=== PATIENT | male | born 1945 | race Caucasian/White ===

== ENCOUNTER 2016-07-18 13:12 | Emergency (ER) | payer MEDICARE ==
[~2016-07-18] VITALS: Ht 180.3 cm; Wt 86.4 kg
[~2016-07-18 13:12] MED LIST: CEPH500T PO; DOCU50CA7 PO; LISI-567 PO; OXYC-465 PO; OXYC5TAB72 PO; POLY17PO6 PO; SENN8.6C6 PO
[2016-07-18 13:14] VITALS: BP 162/105; PULSE 108; RESP 18; O2SAT 97
--- NOTE | 2016-07-18 13:55 | ED.REPORT ---
HPI-General Illness Date of Service Jul 18, 2016 ED Provider: Vivi Roche MD 70 y/o Pt with Hx of Pneumonia, HTN and current smoker reports to the ED with cough/SOB onset 4 weeks ago. The symptoms have been progressively worsening especially the past 3-4 days. The dyspnea is exacerbated with exertion. Pt reports associated fatigue, diarrhea, weakness, productive cough with sputum. Pt denies fever, vomiting, CP and lightheadedness. Pt claims symptoms experienced are similar to past episode of Pneumonia. Nursing Notes Stated Complaint: SOB/SICK Chief Complaint: Respiratory Distress Nursing Notes Reviewed: Yes Allergies: Coded Allergies: No Known Allergies (Verified Allergy, Unknown, 07/18/16) Scheduled Cephalexin (Cephalexin) 500 Mg Tablet 500 MG PO q12h Lisinopril (Lisinopril) 20 Mg Tablet 20 MG PO DAILY Polyethylene Glycol 3350 (Miralax) 17 Gm Powd.pack 17 GM PO DAILY Sennosides (Senna) 8.6 Mg Capsule 17.2 MG PO DAILY Scheduled PRN Docusate Sodium (Docusate Sodium) 50 Mg Capsule 100 MG PO BID PRN PRN For Constipation oxyCODONE (oxyCODONE) 5 Mg Tablet 5 MG PO q6h PRN PRN For Pain oxyCODONE-Acetaminophen 7.5-325 mg (oxyCODONE-Acetaminophen 7.5-325 mg) 1 Each Tablet 1 TAB PO q6h PRN PRN For Pain General Time Seen by MD: 13:53 Chief Complaint Breathing problem Hx Obtained From: Patient, Spouse Arrived By: Walk-in Sudden in Onset?: No Onset Occurred: More than a week ago... (4 weeks) Symptom Duration: Since onset Severity: Current: No pain currently Associated with: Reports: Cough, Shortness of breath, Weakness, Denies: Fever, Vomiting Similar Sx Previous: Yes (Pt claims symptoms experienced are similar to past episode of Pneumonia.) Past Medical History Past Medical History 1. Hypertension. 2. Hyperlipidemia. 3. Psoriasis. 4. Pneumonia 5. Back pain 6. Sleep apnea Past Surgical History Negative Smoking History Current Every Day Smoker Social History Alcohol Use: 1-3 per day Drug Use: Denies drug use Other Social History: Ambulatory Status Independent Review of Systems Full Review of Systems Constitutional: Reports: Fatigue, Weakness - generalized, Denies: Fever Respiratory: Reports: Dyspnea on exertion, Prod cough, clear, Shortness of breath Cardiovascular: Denies: Chest pain GI: Reports: Diarrhea, Denies: Vomiting Neurologic: Denies: Lightheaded Complete sys rev & neg: except as marked. Physical Exam Vital Signs Vital Signs Date Time Temp Pulse Resp B/P Pulse Ox O2 Delivery O2 Flow Rate FiO2 07/18/16 15:20 80 20 185/93 96 Room Air 07/18/16 13:14 36.6 108 18 162/105 97 Room Air Initial VS: Reviewed General/Constitutional: Well-developed, Well-nourished Head / Eyes: Atraumatic, Normocephalic, PERRL ENT: Conjunctiva normal, No scleral icterus Neck: Full range of motion Skin: Warm, Dry, No cyanosis Neurologic: Alert, Oriented, Nonfocal Psychiatric: Mood/affect normal, Behavior normal, Normal thought content General/Constitutional: Awake, Alert, Cooperative, Not toxic appearing Respiratory / Chest: Atraumatic, No respiratory distress, No wheezing Rhonchi right lower lung field Cardiovascular: Heart rate NL, Regular rhythm, Heart sounds NL, Cap refill not delayed, Peripheral circulation NL Abdomen: Atraumatic, Non-tender, No guarding, No rebound, BS normoactive Organomegaly / Mass / Hernia: Positive: Hernia umbilical Lower Extremity / Pelvis / MS: No edema (chronic venous stasis changes) Interpretation & Diagnostics Lab Results Interpretation Result Diagram: 07/18/16 1429 07/18/16 1429 Test 07/18/16 14:29 White Blood Count 8.8th/mm3 (3.8-10.1) Red Blood Count 4.61mil/mm3 (4.40-5.80) Hemoglobin 15.9g/dL (13.8-17.2) Hematocrit 46.6% (41.0-50.0) Mean Corpuscular Volume 101.1fL (81-100) Mean Corpuscular Hemoglobin 34.5pg (27.0-35.0) Mean Corpuscular Hemoglobin Concent 34.1% (32.0-37.0) Red Cell Distribution Width 12.7% (12.3-15.4) Platelet Count 219bil/L (150-400) Neutrophils (%) (Auto) 62.9% (40-74) Lymphocytes (%) (Auto) 30.4% (14-46) Monocytes (%) (Auto) 5.9% (4-12) Eosinophils (%) (Auto) 0.2% (0-5) Basophils (%) (Auto) 0.1% (0-3) Sodium Level 135mEq/L (134-144) Potassium Level 4.5mEq/L (3.5-5.2) Chloride Level 94mEq/L (97-108) Carbon Dioxide Level 23mmol/L (18-29) Blood Urea Nitrogen 29mg/dL (8-27) Creatinine 1.11mg/dL (0.76-1.27) Estimat Glomerular Filtration Rate 70mL/min (>59) Glucose Level 82mg/dL (60-99) Lactic Acid Level 1.4mmol/L (0.4-2.0) Calcium Level 9.6mg/dL (8.5-10.1) Total Bilirubin 1.0mg/dL (0.0-1.2) Aspartate Amino Transf (AST/SGOT) 41U/L (0-50) Alanine Aminotransferase (ALT/SGPT) 28U/L (0-44) Alkaline Phosphatase 60U/L (25-160) Troponin T < 0.010ug/L (0.0-0.011) Pro-B-Type Natriuretic Peptide 428.9pg/mL (0-376) Total Protein 8.8g/dL (6.4-8.4) Albumin 4.1g/dL (3.4-5.0) General Lab Results Interp 1: Labs reviewed ECG Interpretation Time: 14:11 Interpreted by: ED physician Normal ECG Interpretation: Normal rate (79), Normal sinus rhythm, No acute ischemic changes, Normal QRS, Normal axis, Normal intervals, Adequate tracing X-Ray Chest Interpretation Chest Xray Interpretation: IMPRESSION: Trace right subpulmonic pleural effusion is of uncertain etiology. Dictated by: Suleiman Hunter M.D. on 07/18/2016 at 14:10 Approved by: Suleiman Hunter M.D. on 07/18/2016 at 14:10 View: AP & lat Interpretation / Wet Read by: Interpret - Radiologist Chest Xray Interpretation: Developing RLL pnemonia with trace effusion on that side. Interpretation / Wet Read by: Wet read ED physician Re-Eval/Medical Decision Med Decision/Clinical Course Clinical right lower lobe pneumonia without signs or symptoms of sepsis. Community-acquired. Outpatient antibiotics. Use no need for steroids or nebulizers at this point. Did review signs and symptoms of worsening pneumonia and evidence for sepsis and encouraged him to return should he get worse. Counseled Regarding: Diagnosis Discharge & Departure Primary Impression: Pneumonia Disposition: Home Additional Instructions: You have pneumonia on the right side. I am glad the convinced to come in and see us today. Labs, chest x-ray, EKG and remainder workup are actually very reassuring. I fully expect that he will recover completely with going home and completing a course of antibiotics. I have given you a dose of ceftriaxone in the ER, you will need to compete a course of azithromycin (5 days) and have been given a prescription for this If you are worsening, please return to the emergency room Referrals: Hannah Moore DO (PCP) Scribe Attestation Portions of this note were transcribed by Marylou Coburn and Lamin Rosario. I, (Dr. Roche) personally performed the history, physical exam and medical decision- making; I reviewed and confirmed the accuracy of the information in the transcribed note. Signed by: Marylou Coburn. 07/18/2016, 1354 copies to: Hannah Moore Shawna L MD Jul 18, 2016 13:55 Lamin Hensley Jul 18, 2016 14:21 Marylou Coburn Jul 18, 2016 14:55
[2016-07-18] MEDS ORDERED: 0.9% Sodium Chloride 1,000 ML IV ONE (14:03)
[2016-07-18] MEDS ORDERED: Azithromycin Inj 500 MG in Dextrose 5% w/Vial Mate 250 ML IV ONE (14:05)
--- NOTE | 2016-07-18 14:12 | DRSVH ---
PROCEDURE: X-RAY CHEST, TWO VIEWS ([id number]) INDICATIONS: 70 year-old male with shortness of breath. TECHNIQUE: 2 views of the chest were acquired. COMPARISON: [facility], CR, CHEST 1VW (PORTABLE), 12/11/2014, 1:09. Located within [facility], CR, CHEST 1VW (PORTABLE), 03/16/2011, 9:25. [facility], , CHEST 1VW (PORTABLE), 02/14, 7:40. FINDINGS: Surgical changes and devices: None. Lungs and pleura: There is trace right subpulmonic pleural effusion. No pneumothorax. Lungs are clear . Mediastinum: Mediastinal contours are normal. Heart size is normal. There is aortic atherosclerosi s. Bones and chest wall: No suspicious bony abnormalities. There is lower thoracic spine disc degenera tion. Soft tissues appear unremarkable. IMPRESSION: Trace right subpulmonic pleural effusion is of uncertain etiology. Dictated by: Suleiman Hunter M.D. on 07/18/2016 at 14:10 Approved by: Suleiman Hunter M.D. on 07/18/2016 at 14:10
[2016-07-18] MEDS: cefTRIAXone Inj 2,000 MG in IV Premix 1 EACH IV ONE ×2 (14:13→15:13)
[2016-07-18 14:48] LABS: BASOPHILS % (AUTO) 0.1 % (0-3); EOSINOPHILS % (AUTO) 0.2 % (0-5); MONOCYTES % (AUTO) 5.9 % (4-12); Mean Corpuscular Hemoglobin 34.5 pg (27.0-35.0); Mean Corpuscular Volume 101.1 fL (81-100); NEUTROPHILS % (AUTO) 62.9 % (40-74); Platelet Count 219 bil/L (150-400)
[2016-07-18 15:12] LABS: TROPONIN T < 0.010 ug/L (0.0-0.011)
[2016-07-18 15:20] VITALS: BP 185/93; PULSE 80; RESP 20; O2SAT 96
[2016-07-18] MEDS ORDERED: AZIT250T4 PO (15:46)
== END 2016-07-18 16:08 | disposition home or self-care (01) ==
LOC: SED 13:12
DX: J18.9 Pneumonia, unspecified organism (principal); R06.02 Shortness of breath; I10 Essential (primary) hypertension; E78.5 Hyperlipidemia, unspecified; F17.200 Nicotine dependence, unspecified, uncomplicated; Z87.01 Personal history of pneumonia (recurrent)
CPT/HCPCS: 36415; 71020; 80053; 82308; 83605; 83880; 84484; 85025; 87040; 93005; 96365; 99285; J0696; J7030

== ENCOUNTER 2016-08-18 04:30 | Inpatient (IN) | payer MEDICARE ==
[~2016-08-18] VITALS: Ht 180.3 cm; Wt 84.2 kg
[2016-08-18] VITALS (11 sets, daily range): BP systolic 107–149; BP diastolic 60–78; PULSE 59–98; RESP 16–20; O2SAT 95–99
[~2016-08-18 04:30] MED LIST changes: +AZIT250T4 PO
[2016-08-18] MEDS ORDERED: Epinephrine Racemic 2.25% 0.5 mL Inhalation Solution NEB ONE ×2 (04:35→04:41)
[2016-08-18] MEDS ORDERED: Dexamethasone 10 mg/mL Inj ONE (04:37)
--- NOTE | 2016-08-18 04:49 | ED.REPORT ---
HPI-General Illness Date of Service Aug 18, 2016 ED Provider: Jose Armando Hebert MD Patient is a 70 year old male with a history of hypertension on lisinopril with recent dose increase who presents to the ED via EMS in severe respiratory distress after he awoke with shortness of breath at 2am this morning. The patient is not able to swallow his own secretions and spitting up in the ED. The patient feels like he is choking, due to his throat being swollen. The patient does not have any known allergies and has not previously had an anaphylactic reaction. He is only able to nod or mumble words to communicate. He was given Nitroglycerin and DuoNeb by EMS, on CPAP. He does not have a history of congestive heart failure. Patient denies chest pain but admits that his abdomen is more distended than usual. The patient was recently treated for pneumonia. He drinks "two drinks" of alcohol daily (his approximates >4 beers per day) and he smokes cigarettes daily. Patient has previously gone through alcohol withdrawal when admitted to the hospital. Nursing Notes Stated Complaint: SHORTNESS OF BREATH Nursing Notes Reviewed: Yes Allergies: Coded Allergies: ANGELINA Inhibitors (Verified Allergy, Severe, 08/18/16) angioedema requiring intubation lisinopril (Verified Allergy, Severe, 08/18/16) angioedema requiring intubation No Known Allergies (Verified Allergy, Unknown, 07/18/16) Scheduled Azithromycin (Zithromax (Z-Jared)) 250 Mg Tablet 250 MG PO DAILY 2 pills today and one daily for 4 more days Cephalexin (Cephalexin) 500 Mg Tablet 500 MG PO q12h Lisinopril (Lisinopril) 20 Mg Tablet 20 MG PO DAILY Polyethylene Glycol 3350 (Miralax) 17 Gm Powd.pack 17 GM PO DAILY Sennosides (Senna) 8.6 Mg Capsule 17.2 MG PO DAILY Scheduled PRN Docusate Sodium (Docusate Sodium) 50 Mg Capsule 100 MG PO BID PRN PRN For Constipation oxyCODONE (oxyCODONE) 5 Mg Tablet 5 MG PO q6h PRN PRN For Pain oxyCODONE-Acetaminophen 7.5-325 mg (oxyCODONE-Acetaminophen 7.5-325 mg) 1 Each Tablet 1 TAB PO q6h PRN PRN For Pain General Time Seen by MD: 04:36 Chief Complaint Breathing problem (shortness of breath) Hx Obtained From: Patient, EMS Arrived By: Ambulance Sudden in Onset?: Yes Onset Occurred: 1 - 4 hours ago Symptom Duration: Since onset Severity: Current: No pain currently Severity: Maximum: No pain Recent Healthcare: No recent doctor visit, No recent hospitalization Similar Sx Previous: No Past Medical History Past Medical History 1. Hypertension. 2. Hyperlipidemia. 3. Psoriasis. 4. Pneumonia 5. Back pain 6. Sleep apnea 7. Open fracture dislocation right ankle, with subsequent ORIF 8. drinks alcohol daily, history of alcohol withdrawal Past Surgical History Right ankle ORIF Smoking History Current Every Day Smoker Social History Alcohol Use: 3-5 per day Drug Use: Denies drug use Other Social History: Good social support, , Local resident Ambulatory Status Independent Review of Systems Unable to Obtain ROS Patient condition (limited by respiratory distress) Full Review of Systems Ears / Nose / Throat: Reports: Throat swelling Respiratory: Reports: Non-productive cough, Shortness of breath Cardiovascular: Denies: Chest pain GI: Reports: Dysphagia Complete sys rev & neg: except as marked. Physical Exam Vital Signs Vital Signs Date Time Temp Pulse Resp B/P Pulse Ox O2 Delivery O2 Flow Rate FiO2 08/18/16 05:15 98 20 98 Room Air Initial VS: Reviewed Extremities: Vascular intact, Neuro intact, No swelling Neurologic: Alert, Oriented, Nonfocal Psychiatric: Mood/affect normal, Behavior normal General/Constitutional: Awake, Alert Distress / Hydration: Positive: Distress severe (overt distress) hypertension Head / Eyes: Atraumatic, Normocephalic, PERRL Mouth: Positive: Angioedema present... (Severe, pale bland edema, with swollen throat ) unable to swallow his own secretions Neck: Supple, No JVD Resp Distress / Stridor: Positive: Resp distress severe, Stridor severe ( inspiratory stridor) Wheezing / Retractions: Positive: Wheezing expiratory gurgling his own secretions coughing purple face, with spasmodic coughing Cardiovascular: Regular rhythm, No murmurs Heart Rate / Rhythm: Positive: Tachycardia Abdomen: Soft, Non-tender Interpretation & Diagnostics Lab Results Interpretation Result Diagram: 08/18/160 08/18/16 0440 Test 08/18/16 04:40 White Blood Count 8.1th/mm3 (3.8-10.1) Red Blood Count 4.58mil/mm3 (4.40-5.80) Hemoglobin 16.1g/dL (13.8-17.2) Hematocrit 46.4% (41.0-50.0) Mean Corpuscular Volume 101.3fL (81-100) Mean Corpuscular Hemoglobin 35.2pg (27.0-35.0) Mean Corpuscular Hemoglobin Concent 34.7% (32.0-37.0) Red Cell Distribution Width 13.2% (12.3-15.4) Platelet Count 218bil/L (150-400) Neutrophils (%) (Auto) 59.5% (40-74) Lymphocytes (%) (Auto) 32.5% (14-46) Monocytes (%) (Auto) 7.0% (4-12) Eosinophils (%) (Auto) 0.5% (0-5) Basophils (%) (Auto) 0.1% (0-3) Erythrocyte Sedimentation Rate 5mm/hr (0-30) Hold Purple Top Tube Received (Received) Prothrombin Time 10.2sec (8.1-12.5) Prothromb Time International Ratio 0.95ratio Activated Partial Thromboplast Time 25.8sec (22.8-33.0) Hold Blue Top Tube Received (Received) Sodium Level 137mEq/L (134-144) Potassium Level 4.6mEq/L (3.5-5.2) Chloride Level 94mEq/L (97-108) Carbon Dioxide Level 21mmol/L (18-29) Blood Urea Nitrogen 28mg/dL (8-27) Creatinine 1.05mg/dL (0.76-1.27) Estimat Glomerular Filtration Rate 75mL/min (>59) Glucose Level 96mg/dL (60-99) Calcium Level 9.9mg/dL (8.5-10.1) Magnesium Level 1.7mg/dL (1.6-2.6) Total Bilirubin 1.1mg/dL (0.0-1.2) Aspartate Amino Transf (AST/SGOT) 88U/L (0-50) Alanine Aminotransferase (ALT/SGPT) 62U/L (0-44) Alkaline Phosphatase 63U/L (25-160) Troponin T 0.010ug/L (0.0-0.011) Pro-B-Type Natriuretic Peptide 503.4pg/mL (0-376) Total Protein 8.8g/dL (6.4-8.4) Albumin 4.4g/dL (3.4-5.0) Hold Red Top Tube Received (Received) Hold [place] Top Tube Received (Received) ECG Interpretation ECG Interpretation: Sinus tachycardia, Rate 108 Time: 04:52 Interpreted by: ED physician Normal ECG Interpretation: No acute ischemic changes X-Ray Chest Interpretation Chest Xray Interpretation: Impression: ET placement good. NG tube in good position. No infiltrate. No acute process. View: Portable Interpretation / Wet Read by: Wet read ED physician Re-Eval/Medical Decision Med Decision/Clinical Course 70-year-old man presents with acute angioedema of the throat resulting in significant respiratory compromise. He requires an airway urgently to secure his airway. He responded to initial measures including subcutaneous epinephrine racemic epinephrine and Decadron and Benadryl and Pepcid, but still is in significant distress. Emeses he was summoned and performed an awake intubation with a bronchoscope. He was then sedated with propofol and is transported now to the ICU for further evaluation management. He briefly became hypotensive after boluses of propofol, but had been given Nitropaste en route by medics. This was removed and a fluid bolus given, his blood pressure has been stable subsequently. Source of Hx: Old records Time of Eval: 04:37 Re-Evaluation/Progress Note: Started on racemic epi. Informed the patient that he may need to intubated, since he still has an airway at this point. He will also need to be admitted to the hospital. Patient understands and agrees with this plan. All questions were addressed. Time of Eval: 04:47 Patient Status: Condition improved Re-Evaluation/Progress Note: Patient is improved and does not need intubation at this moment. Will consult anesthesia. Time of Eval: 05:30 Re-Evaluation/Progress Note: Dr. Griffith from anesthesia is present in the ED and evaluating the patient. Patient is still having difficulty swallowing his secretions and is coughing. Anesthesia will intubate the patient. Time of Eval: 06:04 Re-Evaluation/Progress Note: Patient was intubated by anesthesia successfully. Consultation #1: Referral / Consult Name: Stephan Griffith MD Consulted With: On-call physician (Anesthesia ) Call Returned at: 04:50 Note: Spoke with the on-call anesthesiologist, Dr. Griffith. He agrees to come to the ED to intubate the patient, will be here shortly. Consultation #2: Referral / Consult Name: Kim Schofield DO Consulted With: Hospitalist Call Returned at: 06:17 Home Health Care Worker: Will see patient, Agrees with eval, Agrees with plan, Accepts admit Note: Spoke with Dr. Schofield, hospitalist, who agrees to accept admit. Counseled Regarding: Diagnosis, Lab results, Need for admission Discharge & Departure Primary Impression: Angioedema Encounter type: initial encounter Qualified Code: T78.3XXA - Angioneurotic edema, initial encounter Additional Impressions: Respiratory distress Allergy to lisinopril Disposition: ADMITTED TO HOSPITAL Discharge Condition All VS Reviewed: Yes Condition: Critical Referrals: Hannah Moore DO (PCP) Crit Care Except Billable Proc Time Spent: 30-74 minutes (60 minutes) Services Performed: Patient management by me, Time spent at bedside, Reviewing test results, Reviewing imaging, Discussing patient care, Documentation in record, Time with fam/surrogate Scribe Attestation Portions of this note were transcribed by Lluvia Rush. I, Dr. Hebert personally performed the history, physical exam and medical decision-making; I reviewed and confirmed the accuracy of the information in the transcribed note. Signed by: Keyshawn Up, 08/18/2016 0635 copies to: Hannah Moore Christopher W MD Aug 18, 2016 04:49 Lluvia Rush Aug 18, 2016 04:55
[2016-08-18 05:09] LABS: BASOPHILS % (AUTO) 0.1 % (0-3); EOSINOPHILS % (AUTO) 0.5 % (0-5); Mean Corpuscular Hemoglobin 35.2 pg (27.0-35.0); Mean Corpuscular Volume 101.3 fL (81-100); NEUTROPHILS % (AUTO) 59.5 % (40-74); Platelet Count 218 bil/L (150-400)
[2016-08-18 05:12] LABS: INR 0.95 ratio
[2016-08-18] MEDS ORDERED: Famotidine 10 mg/mL 2 mL Inj IVPUSH ONE (05:15)
[2016-08-18 05:17] LABS: TROPONIN T 0.01 ug/L (0.0-0.011)
[2016-08-18 05:28] LABS: Magnesium 1.7 mg/dL (1.6-2.6)
[2016-08-18 05:30] LABS: ERYTHROCYTE SEDIMENTATION RATE 5 mm/hr (0-30)
[2016-08-18] MEDS ORDERED: Propofol 10,000 mCg/mL 100 mL Inj ONE ×4 (05:33→23:39)
[2016-08-18] MEDS ORDERED: fentaNYL-PF 50 mCg/mL 2 mL Inj IVPUSH ONE (05:45)
[2016-08-18] MEDS ORDERED: Ondansetron 2 mg/mL 2 mL Inj IVPUSH PRN (06:25)
[2016-08-18] MEDS ORDERED: Senna-Docusate 8.6-50 mg Tablet PO PRN (06:25)
[2016-08-18] MEDS ORDERED: Polyethylene Glycol (PEG) 17 Gm Powder PO PRN (06:25)
[2016-08-18] MEDS ORDERED: Alum-Mag Hydrox-Simeth 30 mL Suspension PO PRN (06:25)
[2016-08-18] MEDS ORDERED: Acetaminophen IV 1,000 MG in IV Premix 1 EACH IV PRN (06:25)
[2016-08-18] MEDS: fentaNYL 2,500 mCg/250 mL 2,500 MCG in IV Premix 1 EACH IV SCH ×2 (08:05→08:07)
[2016-08-18] MEDS: Chlorhexidine 0.12% 15 mL Oral Solution MT SCH ×4 (08:14→19:59)
[2016-08-18] MEDS: Heparin 5,000 Unit/mL Inj SUBQ SCH ×2 (08:15→18:42)
[2016-08-18 08:30] LABS: APPEARANCE,URINE CLEAR (CLEAR,HAZY); COLOR,URINE YELLOW (YELLOW); OCCULT BLOOD,URINE NEGATIVE (NEGATIVE); UROBILINOGEN,URINE NORMAL (NORMAL)
--- NOTE | 2016-08-18 08:59 | DRSVH ---
PROCEDURE: X-RAY CHEST ONE VIEW, PORTABLE ([id number]) INDICATIONS: POST INTUBATION. ANGIOEDEMA. RESPIRATORY DISTRESS. TECHNIQUE: One view of the chest was acquired. COMPARISON: [facility], , CHEST 1VW (PORTABLE), 12/11/2014, 1:09. FINDINGS: Surgical changes and devices: ET tube is 6.1 cm superior to the dyllan and could be advanced approxim ately 2 cm. NG tube passes GE junction. Linear foreign body projects over the right midlung which is presumably external to the patient. Lungs and pleura: No pleural effusions or pneumothorax. Lungs are clear. Mediastinum: Mediastinal contours appear normal. Heart size is normal. Bones and chest wall: No suspicious bony lesions. Overlying soft tissues appear unremarkable. IMPRESSION: ET tube 6.1 cm superior to the dyllan. Dictated by: Sandra Gorman MD, PhD on 08/18/2016 at 8:56 Approved by: Sandra Gorman MD, PhD on 08/18/2016 at 8:58
[2016-08-18] MEDS ORDERED: HYG25 PO (10:01)
--- NOTE | 2016-08-18 10:47 | NUR ---
Nursing/Admission. From ED to CCU #2017 at 0700, intubated and on vent support, Propofol for sedation. Intermittent grimacing and restlessness; Fentanyl gtt started with good effect, titrating for appropriate sedation. Sinus rhythm on tele, no ectopy. BP stable except for mild decreases following bolus' sedation. No family present. has called for an update this morning. UOP low, will continue to monitor, update MD. Appears comfortable and in no distress at this time.
[2016-08-18] MEDS: Lactated Ringer's 1,000 ML IV SCH (12:56)
--- NOTE | 2016-08-18 13:06 | PCM.HPMED ---
Subjective Date of Service Aug 18, 2016 Primary Provider: Admitting Physician: Kim Schofield DO Primary Care Physician: Hannah Moore DO Attending Physician: Kim Schofield DO Admit Status: From the Emergency Department Chief Complaint: shortness of breath History of Present Illness: Patient is a 70 year old male with a past medical history of uncontrolled hypertension current lisinopril with recent dose increase 07/23/16 from 20 mg to 40 mg daily who presented to the ED via EMS in severe respiratory distress after he awoke with shortness of breath at 2am this morning. Per ED note The patient was not able to swallow his own saliva and was spitting up in the ED. The patented felt like he is choking, and his throat was becoming swollen and being blocked. The patient does not have any known allergies and has not previously had an anaphylactic reaction. While in the ED was only able to nod or mumble words to communicate. He does not have a history of congestive heart failure. Patient denied chest pain but stated that his abdomen is distended. The patient was recently treated for pneumonia. En route to the ED patient was given Nitroglycerin and DuoNeb by EMS and arrived on CPAP. While in the ED patient was started on racemic epi with minimal improvement. Anethesia was consulted and the patient was intubated successfully in the ED. Today: At time of examination patient is intubated and sedated on ventilator pPeak 23 FIO2 30 PEEP 5 TV 560 RR 18 ROS unobtainable due to sedation Allergies Coded Allergies: ANGELINA Inhibitors (Verified Allergy, Severe, 08/18/16) angioedema requiring intubation lisinopril (Verified Allergy, Severe, 08/18/16) angioedema requiring intubation No Known Allergies (Verified Allergy, Unknown, 07/18/16) Home Medications Azithromycin (Zithromax (Z-Jared)) 250 Mg Tablet 250 MG PO DAILY 2 pills today and one daily for 4 more days Cephalexin (Cephalexin) 500 Mg Tablet 500 MG PO q12h Lisinopril (Lisinopril) 20 Mg Tablet 20 MG PO DAILY Polyethylene Glycol 3350 (Miralax) 17 Gm Powd.pack 17 GM PO DAILY Sennosides (Senna) 8.6 Mg Capsule 17.2 MG PO DAILY Docusate Sodium (Docusate Sodium) 50 Mg Capsule 100 MG PO BID PRN PRN For Constipation oxyCODONE (oxyCODONE) 5 Mg Tablet 5 MG PO q6h PRN PRN For Pain oxyCODONE-Acetaminophen 7.5-325 mg (oxyCODONE-Acetaminophen 7.5-325 mg) 1 Each Tablet 1 TAB PO q6h PRN PRN For Pain PMH 1. Hypertension. 2. Hyperlipidemia. 3. Psoriasis. 4. Pneumonia 5. Back pain 6. Sleep apnea 7. Open fracture dislocation right ankle, with subsequent ORIF 8. drinks alcohol daily, history of alcohol withdrawal Surgical History Right ankle ORIF Family History Not able to obtain due to patient being sedated and intubated Social History Hx Alcohol Use: Yes ("couple drinks of hard liquor a day") Hx Substance Use: No Hx Tobacco Use: Yes (1/2 pack a day) Smoking Status: Current Every Day Smoker Exam Vital Signs Vital Sign - Last Date Time Temp Pulse Resp B/P Pulse Ox O2 Delivery O2 Flow Rate FiO2 08/18/16 06:34 97 08/18/16 05:15 98 20 Room Air Exam General: Sedated and intubated, No Acute Distress Head: Normocephalic, atraumatic. External ears normal. Eyes: Pinpoint and on reactive expected with sedation and fentanyl. Anicteric sclerae. Minimal periorbital edema Mouth: Mouth Normal, Mucous Membranes Moist/[place], tongue is mildly swollen, non distended, oropharynx difficult to appreciate due to intubation Neck: Neck supple with full range of motion. No lymphonodus palpable, there is moderate swelling of neck, no tracheal deviation. Chest & Lungs: Clear to auscultation bilaterally with no crackles, wheezes, or rhonchi. Cardiovascular: Regular Rate/Rhythm, Normal S1, Normal S2, No Murmurs/Rubs/ Gallops Abdomen: Non-tender, Non-distended, No masses, Normoactive bowel tones, Soft Musculoskeletal: Normal Range of Motion Extremities: No cyanosis/clubbing/edema bilaterally Neurological: Unable to perform neurological exam due to sedation Lab and Diagnostics Result Diagram: 08/18/1643908/18/16439 X-Rays, CTs and MRIs CHEST X_RAY IMPRESSION: ET tube 6.1 cm superior to the dyllan. Dictated by: Sandra Gorman MD, PhD on 08/18/2016 at 8:56 Approved by: Sandra Gorman MD, PhD on 08/18/2016 at 8:58 Assessment & Plan Patient is a 70 year old male with a past medical history of uncontrolled hypertension current lisinopril with recent dose increase 07/23/16 from 20 mg to 40 mg daily who presented to the ED via EMS in severe respiratory distress after he awoke with shortness of breath at 2am this morning. Patient is admitted under inpatient status for angioedema, hypoxic respiratory failure secondary to angioedema. Hospital day 1 vent day 1 1. Hypoxic respiratory failure, acute, present on admission - Likely secondary to an anaphylactoid reaction with angioedema compromising airway. - Patient had recent increase in lisinopril 07/23/16, no known allergies prior to admission - Patient is intubated and sedated to protect air way - Continue airway management and ventilation, with expected extubation with resolution of angioedema - Continue Fentalyl drip @ 5mls/hr - Continue IV Acetaminophen @ 400 mls/hr - Discontinue Propofol drip - Pulmonology consulted we appreciate their time and recommendations -started benadryl 25mg q6h,pepcid 20 iv bid,solumedrol 40mh iv bid 2. Angioedema, acute, present on admission - Likely secondary to an anaphylactoid reaction with angioedema compromising airway. Patient had recent increase in lisinopril 07/23/16, no known allergies prior to admission - At current time patient's swelling has improved dramatically with epinephrine treatment given in ED, started benadryl 25mg q6h,pepcid 20 iv bid,solumedrol 40mh iv bid - Continue to monitor - Stop Lisinopril,ACEi listed as allergy in chart - Stop NSAIDs 3. Hypertension, chronic - Stop Lisinopril - Avoid ARB - Hold chlorthalidone, restart once patient is off sedation and extubated - Consider Labetalol PRN for breakthrough hypertension - Re-evaluate HTN treatment once patient is extubated - Continue to monitor 4. History of alcohol abuse and withdrawal, chronic - Patient previously admitted to hospital for ETOH withdrawal - Monitor for signs of withdrawal - Start CIWA if indicated 5. Hyperlipidemia chronic - Hold Statin 6. Psoriasis chronic - No home medications - Continue to monitor 7. Back pain chronic - Continue IV Acetaminophen @ 400 mls/hr - Consider restarting home pain medication, Oxycodone 7.5/325 mg Q12 once patient is off of fentanyl drip and extubated 8. Sleep apnea chronic - Consider CPAP/BiPAP at night once patient is extubated - Bowel regimen as needed - Antiemetic as needed DVT prophylaxis: Sub Q heparin High risk medications: Fentanyl Patient is admitted under inpatient status with expected length of stay greater than 2 midnights due to severity of presenting symptoms, risk of adverse event, and complexity of treatment plan. Time spent 55 minutes Attending Statement patient seen and examined with Dr Esquivel .I agree with the history,exam, impression and plan as outlined above copies to: Hannah Moore AARON J DO Aug 18, 2016 07:10 Jose Ramon Paul MD Aug 18, 2016 13:52
--- NOTE | 2016-08-18 13:32 | CONS ---
[address] [address] CONSULTATION REPORT PATIENT: HAKEEM BENTLEY : 1945 MR#: [id number] ADMIT: 08/18/2016 JOB ID: [id number] DATE OF SERVICE: 08/18/2016 PULMONARY CRITICAL CARE CONSULTATION NOTE: REASON FOR CONSULTATION: The patient is a 70-year-old man seen in consultation at the request of Dr. Paul for acute respiratory failure in the setting of angioedema secondary to lisinopril. HISTORY OF PRESENT ILLNESS: The patient was already intubated when I met him so all of the history is per review of emergency department notes. He is reportedly on lisinopril for hypertension and the dose had been recently increased. He presented to the emergency department with respiratory distress which woke him up at 2 a.m. this morning. He was unable to swallow his secretions apparently, with a sensation of his throat closing and choking. They attempted treatment with racemic epi according to the ER notes, but the patient continued to have some difficulty. Anesthesia was asked to come evaluate the patient and he proceeded to get intubated. PAST MEDICAL HISTORY: Per review of emergency department records includes: 1. Hypertension. 2. Psoriasis. 3. Hyperlipidemia. 4. Sleep apnea. 5. History of alcohol intake daily. SOCIAL HISTORY: Unable to obtain from the patient but per ER records he smokes and has at least 2-4 drinks every day. Review of systems, family history, etc. could not be obtained from the patient because he is intubated. PHYSICAL EXAMINATION: Vital signs reviewed. Temperature 37.3, pulse 96, respirations 19, BP 123/71. Sats 97% on 30% FiO2, 5 cm of PEEP, tidal volume 560 rate of 16. General: Intubated, sedated. Does open his eyes to voice. He does not follow commands. Neck: No cervical lymphadenopathy. HEENT: Tongue appears normal. ET tube in appropriate position. There is no lip swelling, periorbital edema, facial edema. Skin: No rashes or hives. Chest: Clear to auscultation. Heart: Regular rate, rhythm. Abdomen: Soft, nontender. Extremities: No cyanosis, clubbing, and/or edema. LABORATORIES: Reviewed. Chest x-ray: Clear. ET tube is 6 cm above the dyllan. Arterial blood gas from this morning shows pH 7.41. Rest of gas was also reviewed and within acceptable limits. ASSESSMENT: 1. Angioedema. 2. Acute hypoxic respiratory failure. RECOMMENDATIONS: A 70-year-old man with hypertension and history of daily alcohol intake presenting with angioedema suspected secondary to lisinopril dose change. He got a dose of Decadron, racemic epi, subcu epi, famotidine, and Benadryl in the emergency department just this morning. While there is no strong evidence to support it, I think at this point we should continue these. He does need famotidine for gastrointestinal prophylaxis and heparin for DVT prophylaxis. I would also recommend Solu-Medrol starting tomorrow, as well as Benadryl to be continued today. Discussed with Dr. Paul. The patient's vent settings seem appropriate. For sedation he is on propofol and fentanyl at low dose 25 mcg. Will reassess tomorrow for a cuff leak. TIME: Critical care time 40 minutes.
--- NOTE | 2016-08-18 14:05 | NUR ---
NUTRITION ASSESSMENT: ASSESS:70 YO male admitted to CCU intubated following angioedema secondary to lisinopril. Pt. will likely be extubated tomorrow once airway cleared. There is the potential for CIWA protocol to be initiated due to patient's alcohol intake. His UOP is noted to be low. PMHx:HTN, dyslipidemia, ETOH with history of withdrawal, smoking, recent pneumonia, RASTA. DIET:NPO. LABS: Reviewed. Chloride 94, BUN 28, AST 88, ALT 62, Alb 4.4. MEDICATIONS: Reviewed. Solu-medrol, benadryl, fentanyl. Propofol currently at 15.5 ml, providing 409 lipid kcal. NUTRITION FOCUSED PHYSICAL ASSESSMENT: GI symptoms / stool: No BM reported.[place]: No [place] reported. Skin Integrity: No issues reported. ANTHROPOMETRICS: Current Wt: 82.9 kgBMI: 25.5 kg/m2. IBW: 78.18 kg (106% IBW) ESTIMATED NEEDS (VENT): Calories: 1658 - 2073 kcal (20 - 25 kcal / kg BW) Protein: 124 - 149 g protein (1.5 - 1.8 g / kg BW) Fluid: Approx 2487 ml (30 ml / kg BW) NUTRITION DIAGNOSIS: 1)Inadequate oral intake related to inability to consume sufficient energy, as evidenced by vent / NPO status. INTERVENTION: 1) Order received to initiate enteral feeding. Orders written as follows: initiate Jevity 1.5 @ 35 ml/hr. Once tolerance established, advance 10 ml every 4 hr. to goal rate 50 ml/hr. Flush dose 40 ml H2O every 4 hr. Enteral feeding at goal will provide 1650 kcal (2059 with propofol), 70 g protein. In addition, will add two packets [employer] liquid protein three times per day for a total of 136 g protein. MONITOR/EVALUATE: NPO / vent status, enteral feeding tolerance, labs, GI/nutrition status. Follow up per high nutrition risk guidelines.
--- NOTE | 2016-08-18 15:50 | NUR ---
Social Work note - Initial assessment Yoav Mcnamara is a 70 yr old admitted for angioedema, respiratory distress. EMR reviewed: Pt has [facility]. His PCP is Oscar GANT paperwork in EMR. See attached CM initial assessment. No readmit score available at this time. [employer]ICA [employer] spoke with pt's Daisy on the phone. Pt is vented and sedated. Pt's states that he is independent at baseline, uses no DME, Drives. He has hx of ETOH abuse - drinks daily, has hx of DT's when trying to stop. She states that he is not involved in rehab or substance use disorder treatment. She anticipates that he will come home at d/c. [employer] will continue to follow and will assess for needs as Pt is able to participate. Plan: Home with in POV - will need CD assessment when able to participate. RICCI Hartman Addendum: 08/18/16 at 1554 by JONEL CLEMENTS SS Amended: Links added.
[2016-08-18] MEDS: Famotidine Inj 20 MG in IV Premix 1 EACH IV SCH (19:59)
[2016-08-18] MEDS: MethylprednisoLONE Sodium Succinate 40 mg/mL Inj IVPUSH SCH (19:59)
[2016-08-19] VITALS (8 sets, daily range): BP systolic 90–148; BP diastolic 50–85; PULSE 51–60; RESP 16–21; O2SAT 94–98
[2016-08-19] MEDS ORDERED: Propofol Inj 1,000,000 MCG in IV Premix 1 EACH IV SCH (01:00)
[2016-08-19] MEDS: Chlorhexidine 0.12% 15 mL Oral Solution MT SCH ×6 (01:09→20:30)
[2016-08-19] MEDS: Heparin 5,000 Unit/mL Inj SUBQ SCH ×3 (01:10→16:06)
[2016-08-19] MEDS: Lactated Ringer's 1,000 ML IV SCH ×2 (01:10→16:06)
[2016-08-19 03:12] LABS: BASOPHILS % (AUTO) 0 % (0-3); EOSINOPHILS % (AUTO) 0 % (0-5); MONOCYTES % (AUTO) 4.9 % (4-12); Mean Corpuscular Hemoglobin 35.1 pg (27.0-35.0); NEUTROPHILS % (AUTO) 82.4 % (40-74); Platelet Count 156 bil/L (150-400)
[2016-08-19 03:47] LABS: ERYTHROCYTE SEDIMENTATION RATE 20 mm/hr (0-30)
--- NOTE | 2016-08-19 03:55 | NUR ---
Vent, sedation Vs as noted. Continues ventilated with sats high 90s on 30% fio2. Occasionally bronchospastic followed by copious clear thin oral and ett secretions. Lung sounds slightly coarse. Propofol 30mcg/kg/min and Fentanyl 75mcg/h both unchanged. Pt arouses to minimal stimulation, working manager and nods to command. Tele sinus rhythm/ leandro with hr 40s to 60s. Tolerating tube feeds well at goal 50ml/h.
[2016-08-19 03:59] LABS: Magnesium 1.8 mg/dL (1.6-2.6); Phosphorus 3.7 mg/dL (2.5-4.9)
[2016-08-19] MEDS ORDERED: Glucose 40% Oral Gel 15 Gm Tube PO PRN (07:10)
[2016-08-19] MEDS: Insulin LISPRO 300 Unit/3 mL Inj SUBQ SCH ×4 (08:00→22:00)
[2016-08-19] MEDS: Famotidine Inj 20 MG in IV Premix 1 EACH IV SCH ×2 (08:24→21:51)
[2016-08-19] MEDS: MethylprednisoLONE Sodium Succinate 40 mg/mL Inj IVPUSH SCH ×2 (08:25→21:53)
--- NOTE | 2016-08-19 13:43 | PCM.PNMED ---
Subjective Date of Service Aug 19, 2016 Subjective Facial and tongue swelling markedly improved. Did well on pressure support trial. Extubated to nasal cannula. States lisinopril dose was increased 2 weeks ago. Exam Vital Signs Vital Sign - Last Date Time Temp Pulse Resp B/P Pulse Ox O2 Delivery O2 Flow Rate FiO2 08/19/16 08:30 36.6 54 20 98/54 96 Mechanical Ventilator 30 Intake and Output 08/18/16 08/18/16 08/19/16 Cumulative From/Thru 14:59 22:59 06:59 08/18/16 04:58 - 08/19/16 05:31 Intake Total 880 ml 1673 ml 2553 ml Output Total 325 ml 300 ml 625 ml Balance 555 ml 1373 ml 1928 ml Intake IV Total 650 ml 1077 ml 1727 ml Tube Feeding 190 ml 516 ml 706 ml Tube Irrigant 40 ml 80 ml 120 ml Output Urine Total 325 ml 300 ml 625 ml Gastric Drainage Total 0 ml 0 ml # Bowel Movements 0 0 Exam General: On nasal cannula, No Acute Distress Head: Normocephalic, atraumatic. External ears normal. Facial and tongue swelling markedly improved Eyes: . Anicteric sclerae. Minimal periorbital edema Mouth: Mouth Normal, Mucous Membranes Moist/[place], tongue is mildly swollen, non distended, oropharynx difficult to appreciate due to intubation Neck: Neck supple with full range of motion. No lymphonodus palpable, there is moderate swelling of neck, no tracheal deviation. Chest & Lungs: Clear to auscultation bilaterally with no crackles, wheezes, or rhonchi. Cardiovascular: Regular Rate/Rhythm, Normal S1, Normal S2, No Murmurs/Rubs/ Gallops Abdomen: Non-tender, Non-distended, No masses, Normoactive bowel tones, Soft Musculoskeletal: Normal Range of Motion Extremities: No cyanosis/clubbing/edema bilaterally Neurological: Unable to perform neurological exam due to sedation IVs and Medications Medications Reviewed: Medications were reviewed in detail Lab and Diagnostics Result Diagram: 08/19/16 0300 08/19/16 0300 X-Rays, CTs and MRIs CHEST X_RAY IMPRESSION: ET tube 6.1 cm superior to the dyllan. Dictated by: Sandra Gorman MD, PhD on 08/18/2016 at 8:56 Approved by: Sandra Gorman MD, PhD on 08/18/2016 at 8:58 Assessment & Plan Patient is a 70 year old male with a past medical history of uncontrolled hypertension current lisinopril with recent dose increase 07/23/16 from 20 mg to 40 mg daily who presented to the ED via EMS in severe respiratory distress after he awoke with shortness of breath at 2am this morning. Patient is admitted under inpatient status for angioedema, hypoxic respiratory failure secondary to angioedema. Hospital day 1 vent day 1 1. Hypoxic respiratory failure, acute, present on admission, resolved - secondary to angioedema compromising airway . Due to lisinopril - Patient had recent increase in lisinopril 07/23/16, no known allergies prior to admission - Patient is intubated and sedated to protect air way. Extubated to nasal cannula today, 08/19/16 - Pulmonology consulted we appreciate their time and recommendations -Continue benadryl 25mg q6h,pepcid 20 iv bid,solumedrol 40mh iv bid 2. Angioedema, acute, present on admission - Likely secondary to an anaphylactoid reaction with angioedema compromising airway. Patient had recent increase in lisinopril 07/23/16, no known allergies prior to admission - At current time patient's swelling has improved dramatically started benadryl 25mg q6h,pepcid 20 iv bid,solumedrol 40mh iv bid - Continue to monitor - Stop Lisinopril,ACEi , listed as allergy in chart - Stop NSAIDs 3. Hypertension, chronic - Stop Lisinopril - Avoid ARB - Hold chlorthalidone, restart tomorrow - Consider Labetalol PRN for breakthrough hypertension - Continue to monitor 4. History of alcohol abuse and withdrawal, chronic - Patient previously admitted to hospital for ETOH withdrawal - Monitor for signs of withdrawal - Start CIWA if indicated 5. Hyperlipidemia chronic - Hold Statin 6. Psoriasis chronic - No home medications - Continue to monitor 7. Back pain chronic - Continue IV Acetaminophen @ 400 mls/hr - Consider restarting home pain medication, Oxycodone 7.5/325 mg Q12 once patient is off of fentanyl drip and extubated 8. Sleep apnea chronic - Consider CPAP/BiPAP at night once patient is extubated - Bowel regimen as needed - Antiemetic as needed DVT prophylaxis: Sub Q heparin High risk medications: Fentanyl Disposition: Possible discharge tomorrow if continues to improve VTE Mechanical Devices: Intermittant Pneumatic CD Jose Ramon Paul MD Aug 19, 2016 13:43
--- NOTE | 2016-08-19 14:42 | NUR ---
P: Respiratory Status I: Pt extubated this am. 2L/NC. Pt alert and oriented. LR 75cc/hr. Shearer patent and draining colin urine. Blood sugars WNL. Turned Q 2 hours. Frequent oral care. here and updated on pt's plan of care. E: Stable S: Restraints removed. Pt able to use call light. Frequent rounding.
--- NOTE | 2016-08-19 15:13 | PROG NOTE ---
[address] [address] PROGRESS NOTE PATIENT: HAKEEM BENTLEY : 1945 MR#: [id number] ADMIT: 08/18/2016 JOB ID: [id number] DATE: PULMONARY CRITICAL CARE PROGRESS NOTE: IDENTIFYING DATA: The patient is a 70-year-old man admitted with angioedema and acute respiratory failure secondary to lisinopril. INTERVAL HISTORY: He is awake, trying to write notes, passing his SBT currently. REVIEW OF SYSTEMS: Unable to obtain. PHYSICAL EXAMINATION: Vital signs reviewed. Temperature 36.6, pulse 54, respirations 20, BP 98/54, sats 96% on 30% FiO2. General: Alert, tracking, nodding in response to questions. Chest is clear to auscultation. Tongue is normal size. There is no evidence of airway edema, at least in the mouth region. He has a positive cuff leak. LABORATORIES: Reviewed. No chest x-ray today. ASSESSMENT AND RECOMMENDATIONS: 1. Acute hypoxic respiratory failure. 2. Angioedema. He is doing well on a spontaneous breathing trial today, as expected, and has evidence of a cuff leak. He has been getting steroids, Benadryl, and famotidine. We are going to go ahead and extubate him and have BiPAP, racemic epinephrine available, if he starts having stridor. We also talked to Anesthesia, and they are in-house as well, if needed, if he has any airway difficulties. Obviously, lisinopril will be added to his allergies. If he does well post extubation, I am going to sign off. Please contact me for any further questions. CRITICAL CARE TIME: 35 minutes. [facility]
--- NOTE | 2016-08-19 16:50 | NUR ---
Transfer to [facility] Pt transferred to [facility], room 3005 at 1645 this afternoon following report from BARBER Calderón. Pt A&Ox4, pleasant. Denies any pain/discomfort. Son at bedside. Shearer patent, draining light brown urine. Shearer bag changed as it had a small tear in it. Pt able to transfer from w/c to bed with 1 person assist, shaky and states he feels weak. IVF infusing without issue, 2 PIV's in L FA flushing easily. Pt's abd distended, reports BM yest, denies any tenderness when palpated. On TELE: per tech SB in the 50's. Pt is NPO and eager to eat. Bed alarm on for safety, bed in lowest, locked position.
--- NOTE | 2016-08-19 18:11 | NUR ---
PO Pt repeatedly asking when he'll be allowed to eat/drink. paged. Addendum: 08/19/16 at 1830 by LIZ PIEDRA RN Spoke with MD new order rec'd to start pt on [place] diet, ADAT to low NA diet. Pt aware.
[2016-08-20] VITALS (8 sets, daily range): BP systolic 138–154; BP diastolic 72–85; PULSE 53–82; RESP 18–20; O2SAT 92–97
[2016-08-20] MEDS: Heparin 5,000 Unit/mL Inj SUBQ SCH ×3 (00:23→17:08)
[2016-08-20] MEDS: Chlorhexidine 0.12% 15 mL Oral Solution MT SCH (00:30)
[2016-08-20] MEDS: Lactated Ringer's 1,000 ML IV SCH ×2 (03:23→16:46)
--- NOTE | 2016-08-20 05:47 | NUR ---
Shift Note Uneventful night. Pt A&OX3. Denies chest pain. Denies SOB. Slept most of the night. Compliant with care.
[2016-08-20] MEDS: Insulin LISPRO 300 Unit/3 mL Inj SUBQ SCH ×4 (08:00→21:51)
[2016-08-20 09:08] LABS: BASOPHILS % (AUTO) 0 % (0-3); EOSINOPHILS % (AUTO) 0 % (0-5); MONOCYTES % (AUTO) 6.1 % (4-12); Mean Corpuscular Hemoglobin 35.4 pg (27.0-35.0); Mean Corpuscular Volume 101.3 fL (81-100); NEUTROPHILS % (AUTO) 74.2 % (40-74); Platelet Count 161 bil/L (150-400)
[2016-08-20] MEDS: Famotidine Inj 20 MG in IV Premix 1 EACH IV SCH (10:43)
[2016-08-20] MEDS: MethylprednisoLONE Sodium Succinate 40 mg/mL Inj IVPUSH SCH (10:43)
--- NOTE | 2016-08-20 13:43 | NUR ---
Shearer cath D/C Shearer catheter D/C'd at 0830 per MD order, without difficulty. Some scant breakdown noted around meatus, patient denies pain. By 0930 patient reports being able to void spontaneously. Bed low and locked, call light in reach, care and frequent rounding ongoing.
--- NOTE | 2016-08-20 14:08 | NUR ---
NUTRITION FOLLOW-UP: ASSESS: 70 YO male admitted to CCU intubated following angioedema secondary to lisinopril. Pt was extubated on 08/19 and placed on a full liquid diet which pt has tolerated well. Diet has been advanced to general today. PMHx: HTN, dyslipidemia, ETOH with history of withdrawal, smoking, recent pneumonia, RASTA. DIET: General. No po intake yet reported on general diet, but PO 100% of full liquid diet. LABS: Reviewed. Glu 122, BUN 33, Alb 3.6. MEDICATIONS: Reviewed. GI symptoms / stool: No BM reported. ANTHROPOMETRICS: Current Wt: 84.2 kg. Admit wt: 82.9 kg. ESTIMATED NEEDS: Calories: 2075- 2500 kcal (25-30 kcal / kg BW) Protein: 85-125 g protein (1.0-1.5 g / kg BW) NUTRITION DIAGNOSIS: 1.) Inadequate oral intake related to inability to consume sufficient energy, as evidenced by vent / NPO status--RESOLVED. INTERVENTION: 1.) Continue current diet at this time. MONITOR/EVALUATE: PO intake, labs, GI/nutrition status. Follow per low nutrition risk guidelines.
[2016-08-20] MEDS ORDERED: diphenhydrAMINE 25 mg Capsule PO SCH (14:30)
[2016-08-20] MEDS ORDERED: diphenhydrAMINE 25 mg Capsule PO PRN (14:30)
--- NOTE | 2016-08-20 19:07 | PCM.PNMED ---
Subjective Date of Service Aug 20, 2016 Subjective 70 yo male with HTN presented to ED with angioedema. He had a dose increase of lisinopril on 07/23/16 from 20-40mg. He reports doing well this morning and is so glad he is able to breathe again. He reports no headache, vision change, shortness of breath, chest pain, or abdominal pain Exam Vital Signs Vital Sign - Last Date Time Temp Pulse Resp B/P Pulse Ox O2 Delivery O2 Flow Rate FiO2 08/20/16 04:41 36.6 53 18 140/77 97 Nasal Cannula 2.00 08/19/16 08:30 30 Intake and Output 08/19/16 08/19/16 08/20/16 Cumulative From/Thru 15:00 23:00 07:00 08/18/16 04:58 - 08/20/16 05:21 Intake Total 880 ml 3433 ml Output Total 850 ml 1475 ml Balance -850 ml 880 ml 1958 ml Intake IV Total 880 ml 2607 ml Tube Feeding 706 ml Tube Irrigant 120 ml Output Urine Total 850 ml 1475 ml Gastric Drainage Total 0 ml # Bowel Movements 0 Exam General: No acute distress, well-developed, well-nourished, appropriately interactive HEENT: Normocephalic, atraumatic.Dry, flaky skin over face, external ears without defect. Pupils equal, round, and reactive to light and accommodation. Anicteric sclerae, moist conjunctivae, and no lid lag. Oropharynx free of erythema and cobble stoning with moist mucosa. Neck: Supple with full range of motion. No jugular venous distension. Cardiovascular: Regular rate and rhythm with no murmurs, rubs, or gallops appreciated Pulmonary: Clear to auscultation bilaterally with no crackles, wheezes, or rhonchi. Normal respiratory effort with no use of accessory muscles. Abdomen: Bowel tones present. Soft, nontender, protuberant. No hepatosplenomegaly or masses appreciated. Extremities: No clubbing, cyanosis, edema, or lymphadenopathy appreciated. Skin: Normal temperature, turgor, and texture; no rash, ulcers, or subcutaneous nodules appreciated. Neurological: Cranial nerves grossly intact. Normal muscle strength, tone, and bulk. Reflexes, coordination, and sensory function within normal limits. Prior R foot surgery, walks with limp. Psychiatric: Normal mood and affect. Alert and oriented to person, place, and time. IVs and Medications Medications Reviewed: Medications were reviewed in detail Lab and Diagnostics Result Diagram: 08/19/16 0300 08/19/16 0300 X-Rays, CTs and MRIs CHEST X_RAY IMPRESSION: ET tube 6.1 cm superior to the dyllan. Dictated by: Sandra Gorman MD, PhD on 08/18/2016 at 8:56 Approved by: Sandra Gorman MD, PhD on 08/18/2016 at 8:58 Assessment & Plan Patient is a 70 year old male with a past medical history of uncontrolled hypertension current lisinopril with recent dose increase 07/23/16 from 20 mg to 40 mg daily who presented to the ED via EMS in severe respiratory distress after he awoke with shortness of breath at 2am the morning of admission. Patient is admitted under inpatient status for angioedema, hypoxic respiratory failure secondary to angioedema. Hospital day 3 1. Hypoxic respiratory failure, acute, present on admission, resolved - secondary to angioedema compromising airway - Patient had recent increase in lisinopril 07/23/16, no known allergies prior to admission - Patient was intubated and sedated to protect air way. Extubated to nasal cannula 08/19/16 - Pulmonology consulted we appreciate their time and recommendations - Angioedema medication converted to by mouth in anticipation for discharge tomorrow.benadryl 25mg q6h prn ,pepcid 20 po bid, prednisone 40mg po bid 2. Angioedema, acute, present on admission - Likely secondary to an anaphylactoid reaction with angioedema compromising airway. Patient had recent increase in lisinopril 07/23/16, no known allergies prior to admission - At current time patient's swelling has improved to baseline benadryl 25mg q6h prn ,pepcid 20 po bid, prednisone 40mg po bid - Continue to monitor - Stop Lisinopril,ACEi , listed as allergy in chart - Stop NSAIDs 3. Hypertension, chronic - Stop Lisinopril - Avoid ARB - Hold chlorthalidone, consider restart tomorrow - Consider Labetalol PRN for breakthrough hypertension - Continue to monitor 4. History of alcohol abuse and withdrawal, chronic - Patient previously admitted to hospital for ETOH withdrawal - Monitor for signs of withdrawal - Start CIWA if indicated 5. Hyperlipidemia chronic - Hold Statin 6. Psoriasis chronic - No home medications - Continue to monitor 7. Back pain chronic - Continue IV Acetaminophen @ 400 mls/hr - Consider restarting home pain medication, Oxycodone 7.5/325 mg Q12 8. Sleep apnea chronic - Consider CPAP/BiPAP at night - Bowel regimen as needed - Antiemetic as needed DVT prophylaxis: Sub Q heparin High risk medications: Fentanyl Disposition: Probable discharge tomorrow if continues to improve on PO medications Pain Evaluation: Adequate Pain Control GI Prophylaxis: H2 odilon VTE Mechanical Devices: Intermittant Pneumatic CD Resuscitation Status: CPR: Attempt Resuscitation Time spent 30 minutes Attending Statement I have seen and evaluated patient at bedside in addition to directly supervising care provided by resident physician. I agree with above documentation. Pt greatly improved, extubated, transitioned to oral medication therapy. Anticipate DC home tomorrow if no decline in condition over night following transition to PO medications. DENIA PAYNE DO Aug 20, 2016 07:35 Brian Hoyt DO Aug 20, 2016 22:19
[2016-08-20] MEDS: predniSONE 20 mg Tablet PO SCH (20:26)
[2016-08-21] MEDS: Heparin 5,000 Unit/mL Inj SUBQ SCH ×2 (00:50→08:54)
[2016-08-21 00:58] VITALS: BP 150/82; PULSE 66; RESP 18; O2SAT 99
[2016-08-21 04:44] VITALS: BP 144/87; PULSE 60; RESP 18; O2SAT 98
--- NOTE | 2016-08-21 05:04 | NUR ---
Uneventful Night: Pt had an uneventful night, no c/o pain, chest pain or SOB. Pt on RA throughout the night with cont pulse ox, O2 sats above 92%.
[2016-08-21 06:28] LABS: BASOPHILS % (AUTO) 0 % (0-3); EOSINOPHILS % (AUTO) 0 % (0-5); MONOCYTES % (AUTO) 6.7 % (4-12); Mean Corpuscular Hemoglobin 35.4 pg (27.0-35.0); Mean Corpuscular Volume 100.7 fL (81-100); NEUTROPHILS % (AUTO) 75.4 % (40-74); Platelet Count 184 bil/L (150-400)
[2016-08-21] MEDS: Lactated Ringer's 1,000 ML IV SCH (07:30)
[2016-08-21] MEDS: Insulin LISPRO 300 Unit/3 mL Inj SUBQ SCH ×2 (08:00→11:39)
[2016-08-21] MEDS: predniSONE 20 mg Tablet PO SCH (08:52)
[2016-08-21] MEDS ORDERED: FAMO20T PO (09:04)
[2016-08-21] MEDS ORDERED: PRED-508 PO (09:04)
--- NOTE | 2016-08-21 09:10 | PCM.DIMED ---
Discharge Instructions Date of Service Aug 21, 2016 Dates of Hospitalization Aug 18, 2016 at 05:50 Discharge Diagnosis Discharge Diagnosis Angioedema Medication Instructions Take prednisone 40 mg in the morning starting tomorrow first 6 days. You are to received her dose here this morning. Take the famotidine (Pepcid) twice a day starting tonight. Take Benadryl as needed if any itching, swelling, or restlessness occurs. Diet Heart Healthy Activity No restrictions Call your provider Fever or Chills, Shortness of breath, Weakness (unilateral), Other (swelling or difficulty breathing) Patient Instructions He will need to continue your course of steroids and antihistamine for the next 6 days. If you have any concerns please do not hesitate to call your primary care provider or come back to the emergency department. Take your blood pressures as you can over the next week to help your primary care provider select a good option for treating your high blood pressure. Follow-up plan Follow-up at your scheduled appointment on 08/28/2016 with your primary care provider. Follow-up Provider: [facility] Follow-up with PCP in: 1 week Monica Yao DO Aug 21, 2016 07:01
[2016-08-21 09:53] VITALS: BP 152/87; PULSE 88; RESP 18; O2SAT 95
[2016-08-21 10:56] VITALS: PULSE 93
--- NOTE | 2016-08-21 11:32 | NUR ---
Social Work-Chemical dependency assessment/readiness for discharge: Data:EMR reviewed. Pt is on day 3 of hospitalization for respiratory distress per H&P. SW followed up with pt at bedside to complete CD assessment, SW role explained. Pt has been residing at home with where he remains independent with ADLS. SW discussed pt's ETOH use. Pt informed SW that he drinks one beer a day and does not feel like he has a problem. Pt states that he is not interested in any CD resources and feels like he is fine. SW discussed not smoking. Pt states since he has been hospitalized he has not had a craving to smoke. SW explained reasons why it is important not to smoke. Pt states he plans on quitting. Per RN notes, pt has been up independent in his room- no PT needs indicated. Pt states his will provide transport home at discharge. Pt declined having SW call his . No anticipated discharge needs. SW will continue to follow if needs arise. Assessment:Pt who is independent at baseline. Plan:Pt to discharge home with when medically stable via POV. Pt declining CD resources. No anticipated discharge needs. SW will continue to follow if needs arise. Kassandra Moses,SUSANA
--- NOTE | 2016-08-21 11:38 | NUR ---
Social Work-discharge: Data:EMR Reviewed. Pt is on day 3 of hospitalization for respiratory distress per H&P. Pt is medically stable to discharge home today. Per RN notes, pt has been up independent in his room- no PT needs indicated. CD assessment completed and pt declining resources. Pt declining having SW call his , stating he will call her for transport. No other discharge needs identified. All updated and agreeable to plan. Assessment:Pt who is independent at baseline. Plan:Pt to discharge home today via POV. No other discharge needs identified. All updated and agreeable to plan. SUSANA Garcia
--- NOTE | 2016-08-21 13:46 | NUR ---
Discharge D/C teaching complete, pt denies questions. VSS. IVs d/c'd in tact by charge entry. Discharged home with at 1301. All belongings sent with pt upon d/c.
--- NOTE | 2016-08-21 16:36 | PCM.DC.MED ---
Discharge Summary Date of Service Aug 21, 2016 Dates of Hospitalization Date of Hospital Admission Aug 18, 2016 at 05:50 Date of Discharge: Aug 21, 2016 Providers: Admitting Physician: Kim Schofield DO Primary Care Physician: Hannah Moore DO Attending Physician: Kim Schofield DO Diagnosis at Time of Discharge Diagnosis at Time of Discharge Angioedema Consultations Dr. Fraire with pulmonology due to intubation Procedures XRay, CTs & MRIs CHEST X_RAY IMPRESSION: ET tube 6.1 cm superior to the dyllan. Dictated by: Sandra Gorman MD, PhD on 08/18/2016 at 8:56 Approved by: Sandra Gorman MD, PhD on 08/18/2016 at 8:58 Brief History History of present illness on admission: Patient is a 70 year old male with a past medical history of uncontrolled hypertension current lisinopril with recent dose increase 07/23/16 from 20 mg to 40 mg daily who presented to the ED via EMS in severe respiratory distress after he awoke with shortness of breath at 2am this morning. Per ED note The patient was not able to swallow his own saliva and was spitting up in the ED. The patented felt like he is choking, and his throat was becoming swollen and being blocked. The patient does not have any known allergies and has not previously had an anaphylactic reaction. While in the ED was only able to nod or mumble words to communicate. He does not have a history of congestive heart failure. Patient denied chest pain but stated that his abdomen is distended. The patient was recently treated for pneumonia. En route to the ED patient was given Nitroglycerin and DuoNeb by EMS and arrived on CPAP. While in the ED patient was started on racemic epi with minimal improvement. Anesthesia was consulted and the patient was intubated successfully in the ED. ROS unobtainable due to sedation Hospital Course Patient is a 70 year old male with a past medical history of uncontrolled hypertension current lisinopril with recent dose increase 07/23/16 from 20 mg to 40 mg daily who presented to the ED via EMS in severe respiratory distress after he awoke with shortness of breath at 2am the morning of admission. Patient is admitted under inpatient status for angioedema, hypoxic respiratory failure secondary to angioedema. 1. Hypoxic respiratory failure, acute, present on admission, resolved - secondary to angioedema compromising airway - Patient had recent increase in lisinopril 07/23/16, no known allergies prior to admission - Patient was intubated and sedated to protect air way. Extubated to nasal cannula 08/19/16 - Pulmonology consulted 2. Angioedema, acute, present on admission - Likely secondary to an anaphylactoid reaction with angioedema compromising airway, no known allergies prior to admission - Angioedema medication converted to by mouth in anticipation for discharge. Benadryl 25mg q6h prn, Pepcid 20 po bid, prednisone 40mg po bid for today and 6 more days - Stop Lisinopril,ACEi , listed as allergy in chart - Stop NSAIDs 3. Hypertension, chronic - Stop Lisinopril - Avoid ARB - Restart chlorthalidone 4. History of alcohol abuse and withdrawal, chronic - Patient previously admitted to hospital for ETOH withdrawal - Monitor for signs of withdrawal - CIWA protocol not necessary during this hospital stay 5. Hyperlipidemia chronic - Restart Statin 6. Psoriasis chronic - No home medications 7. Back pain chronic - Restart home pain medication, Oxycodone 7.5/325 mg Q12 8. Sleep apnea chronic -Follow up with primary care provider Exam Vital Signs (Last) Date Time Temp Pulse Resp B/P Pulse Ox O2 Delivery O2 Flow Rate FiO2 08/21/16 04:44 36.6 60 18 144/87 98 Nasal Cannula 2.00 08/19/16 08:30 30 Exam General: No acute distress, well-developed, well-nourished, appropriately interactive HEENT: Normocephalic, atraumatic. External ears without defect. Pupils equal, round, and reactive to light and accommodation. Anicteric sclerae, moist conjunctivae, and no lid lag. Oropharynx free of erythema and cobble stoning with moist mucosa. Neck: Supple with full range of motion. No jugular venous distension. Cardiovascular: Regular rate and rhythm with no murmurs, rubs, or gallops appreciated Pulmonary: Clear to auscultation bilaterally with mild diffuse wheezes that cleared with deep breath, no rhonchi. Normal respiratory effort with no use of accessory muscles. Abdomen: Bowel tones present. Soft, nontender, protuberant. No hepatosplenomegaly or masses appreciated. Extremities: No clubbing, cyanosis, edema, or lymphadenopathy appreciated. Skin: Normal temperature, turgor, and texture; no rash, ulcers, or subcutaneous nodules appreciated. Neurological: Cranial nerves grossly intact. Normal muscle strength, tone, and bulk. Prior R foot surgery, walks with limp. Psychiatric: Normal mood and affect. Alert and oriented to person, place, and time. Test 08/18/16 04:40 08/18/16 06:41 08/19/16 03:00 08/21/16 05:18 Hold Purple Top Tube Received (Received) Prothrombin Time 10.2sec (8.1-12.5) Prothromb Time International Ratio 0.95ratio Activated Partial Thromboplast Time 25.8sec (22.8-33.0) Hold Blue Top Tube Received (Received) Troponin T 0.010ug/L (0.0-0.011) Pro-B-Type Natriuretic Peptide 503.4pg/mL (0-376) Hold Red Top Tube Received (Received) Hold [place] Top Tube Received (Received) Urine Color Yellow (YELLOW) Urine Appearance Clear (CLEAR,HAZY) Urine pH 6.0 (5.0-8.0) Urine Specific [place] 1.019 (1.003-1.035) Urine Protein Negativemg/dL (NEG,TRACE) Urine Glucose (UA) Negativemg/dL (NEGATIVE) Urine Ketones 15mg/dL (NEGATIVE) Urine Occult Blood Negative (NEGATIVE) Urine Nitrite Negative (NEGATIVE) Urine Bilirubin Negative (NEGATIVE) Urine Urobilinogen Normalmg/dL (NORMAL) Urine Leukocyte Esterase Negative (NEGATIVE) Urine RBC 0-2/hpf (0-2) Urine WBC 0-5/hpf (0-5) Urine Epithelial Cells Occasional/hpf (NONE-MOD) Urine Crystals None seen (NONE SEEN) Urine Bacteria None/hpf (NONE-FEW) Urine Hyaline Casts None/lpf (NONE) Urine Granular Casts None seen (NONE SEEN) Urine Waxy Casts None seen (NONE SEEN) Urine Red Blood Cell Casts None seen (NONE SEEN) Urine White Blood Cell Casts None seen (NONE SEEN) Urine Mucus None seen (None Seen) Urine Trichomonas None seen (NONE SEEN) Urine Yeast None (NONE SEEN) Urinalysis Comment None Urine Culture Reflexed Not indicated Erythrocyte Sedimentation Rate 20mm/hr (0-30) Lactic Acid Level 1.4mmol/L (0.4-2.0) Phosphorus Level 3.7mg/dL (2.5-4.9) Magnesium Level 1.8mg/dL (1.6-2.6) C-Reactive Protein 1.3mg/dL (0.0-0.5) Lipase 37U/L (13-60) Thyroid Stimulating Hormone (TSH) 0.602uIU/mL (0.450-4.500) White Blood Count 7.2th/mm3 (3.8-10.1) Red Blood Count 4.10mil/mm3 (4.40-5.80) Hemoglobin 14.5g/dL (13.8-17.2) Hematocrit 41.3% (41.0-50.0) Mean Corpuscular Volume 100.7fL (81-100) Mean Corpuscular Hemoglobin 35.4pg (27.0-35.0) Mean Corpuscular Hemoglobin Concent 35.1% (32.0-37.0) Red Cell Distribution Width 12.4% (12.3-15.4) Platelet Count 184bil/L (150-400) Neutrophils (%) (Auto) 75.4% (40-74) Lymphocytes (%) (Auto) 17.8% (14-46) Monocytes (%) (Auto) 6.7% (4-12) Eosinophils (%) (Auto) 0% (0-5) Basophils (%) (Auto) 0% (0-3) Sodium Level 138mEq/L (134-144) Potassium Level 4.3mEq/L (3.5-5.2) Chloride Level 98mEq/L (97-108) Carbon Dioxide Level 25mmol/L (18-29) Blood Urea Nitrogen 28mg/dL (8-27) Creatinine 0.78mg/dL (0.76-1.27) Estimat Glomerular Filtration Rate 105mL/min (>59) Glucose Level 149mg/dL (60-99) Calcium Level 9.4mg/dL (8.5-10.1) Total Bilirubin 0.6mg/dL (0.0-1.2) Aspartate Amino Transf (AST/SGOT) 62U/L (0-50) Alanine Aminotransferase (ALT/SGPT) 56U/L (0-44) Alkaline Phosphatase 53U/L (25-160) Total Protein 7.4g/dL (6.4-8.4) Albumin 3.7g/dL (3.4-5.0) Microbiology Results MRSA screen negative No growth on blood cultures Moderate normal seferino in sputum. Discharge Medications Discharge Medications Chlorthalidone (Chlorthalidone) 25 Mg Tablet 25 MG PO DAILY (Reported) Famotidine (Pepcid) 20 Mg Tablet 20 MG PO BID Prescribed by: MONICA PAYNE DO Polyethylene Glycol 3350 (Miralax) 17 Gm Powd.pack 17 GM PO DAILY (Reported) Prednisone (Deltasone) 20 Mg Tablet 40 MG PO DAILY Prescribed by: MONICA PAYNE DO Sennosides (Senna) 8.6 Mg Capsule 17.2 MG PO DAILY (Reported) As needed Docusate Sodium (Docusate Sodium) 50 Mg Capsule 100 MG PO BID PRN PRN For Constipation (Reported) oxyCODONE (oxyCODONE) 5 Mg Tablet 5 MG PO q6h PRN PRN For Pain (Reported) oxyCODONE-Acetaminophen 7.5-325 mg (oxyCODONE-Acetaminophen 7.5-325 mg) 1 Each Tablet 1 TAB PO q6h PRN PRN For Pain (Reported) Followup Plan Disposition: Discharge home in stable condition Follow-up plan Follow-up at your scheduled appointment on 08/28/2016 with your primary care provider. Discharge Diet: Heart Healthy Discharge Activity: No restrictions Patient Instructions You will need to continue your course of steroids and antihistamine for the next 6 days. If you have any concerns please do not hesitate to call your primary care provider or come back to the emergency department. Take your blood pressures as you can over the next week to help your primary care provider select a good option for treating your high blood pressure Follow-up Provider: [facility] Follow-up with PCP in: 1 week Time spent 35 minutes Attending Statement The patient was seen and examined together with Dr. Payne on 08/21/2016 and I agree with the history, exam and plan as outlined in the note above. Monica Payne DO Aug 21, 2016 07:01 Bull Fischer MD Aug 22, 2016 10:34
== END 2016-08-21 13:01 | disposition home or self-care (01) | DRG 915 ==
LOC: SED 04:30 → PCC 05:50 → CCU 06:25 → PCC 08-19 15:59 → MPC 08-19 16:42
PROVIDERS: ADMIT Internal Medicine; ATTEND Internal Medicine
PROC: 5A1945Z Respiratory Ventilation, 24-96 Consecutive Hours (ICD-10-PCS; principal; 2016-08-18)
PROC: 0BH17EZ Insertion of Endotracheal Airway into Trachea, Via Natural or Artificial Opening (ICD-10-PCS; 2016-08-18)
PROC: 4A033R1 Measurement of Arterial Saturation, Peripheral, Percutaneous Approach (ICD-10-PCS; 2016-08-18)
DX: T78.3XXA Angioneurotic edema, initial encounter (principal); J96.01 Acute respiratory failure with hypoxia; I10 Essential (primary) hypertension; F17.210 Nicotine dependence, cigarettes, uncomplicated; E78.5 Hyperlipidemia, unspecified; L40.9 Psoriasis, unspecified; G89.29 Other chronic pain; F10.10 Alcohol abuse, uncomplicated